=== PATIENT | female | born 1980 | race Two or more races ===

== ENCOUNTER 2021-12-06 19:35 | Emergency (ER) | payer BC ==
[~2021-12-06] VITALS: Ht 170.2 cm; Wt 125.9 kg
[2021-12-06 20:09] VITALS: BP 176/117
[2021-12-06] MEDS ORDERED: LIDOcaine 1% w/EPI 1:100,000 30ml vial (MDV) IJ ONE (21:45)
[2021-12-06] MEDS ORDERED: TETanus/Pertussis (Acell)/Diphther VAC/PF (Tdap-Adult) 0.5ml syringe IMVAC ONE (21:45)
[2021-12-07] MEDS ORDERED: DOXYCYCLINE 100MG CAPSULE PO STA (00:49)
[2021-12-07] MEDS ORDERED: HYDROcodone/acetaminophen 5mg/325mg tablet PO ONE (00:50)
[2021-12-07] MEDS ORDERED: DOXY-1 PO (00:51)
[2021-12-07] MEDS ORDERED: HYDR-3965 PO (00:51)
--- NOTE | 2021-12-07 01:02 | NUR ---
PO MED X2 GIVEN DRESSING APPLIED TO NAIL REMOVAL SITE
== END 2021-12-07 01:03 | disposition home or self-care (01) ==
LOC: ER 19:36
DX: S91.102A Unspecified open wound of left great toe without damage to nail, initial encounter (principal); E11.9 Type 2 diabetes mellitus without complications; Z88.2 Allergy status to sulfonamides; X58.XXXA Exposure to other specified factors, initial encounter; Y93.9 Activity, unspecified; Y92.89 Other specified places as the place of occurrence of the external cause; Y99.8 Other external cause status
CPT/HCPCS: 11730; 90471; 90715; 99284; A6222; A6449

== ENCOUNTER 2024-02-16 10:45 | Inpatient (IN) | payer BC ==
[~2024-02-16] VITALS: Ht 170.2 cm; Wt 129.0 kg
[2024-02-16] VITALS (15 sets, daily range): BP systolic 94–135; BP diastolic 58–95; PULSE 107–117; RESP 14–20; TEMP 97.6–98.6; O2SAT 95–99
[~2024-02-16 10:45] MED LIST: aspirin 81mg tab.chew ONE
[2024-02-16] MEDS ORDERED: verapamil 2.5 mg/ml inj IV ONE ×2 (10:59→12:00)
[2024-02-16] MEDS ORDERED: LIDOcaine 1% (10mg/ml) 2ml vial ONE (10:59)
[2024-02-16] MEDS ORDERED: iohexol 350MG/ML 100ml bottle IV ONE ×3 (11:00→12:07)
[2024-02-16] MEDS ORDERED: nitroGLYCERIN 500mcg/5mL D5W 5 ML IV ONE ×2 (11:00→12:00)
[2024-02-16] MEDS ORDERED: midazolam 1 mg/ML 2ml injection ONE ×2 (11:00→11:44)
[2024-02-16] MEDS ORDERED: fentaNYL/PF 50MCG/1 ML 2ML syringe ONE (11:00)
[2024-02-16] MEDS ORDERED: heparin 1,000unit/ml 10ml vial 10 ML ONE (11:00)
[2024-02-16 11:09] LABS: BASOPHILS # (AUTO) 0.1 X10'3 (0-0.2); EOSINOPHILS # (AUTO) 0.1 X10'3 (0-0.9); EOSINOPHILS % (AUTO) 0.7 % (0-6); HEMOGLOBIN 12.2 g/dl (12.0-16.0); LYMPHOCYTES # (AUTO) 1.1 X10'3 (1.1-4.8); LYMPHOCYTES % (AUTO) 7.5 % (21-51); MEAN CORPUSCULAR HEMOGLOBIN 22.9 PG (27.0-31.0); MEAN CORPUSCULAR HGB CONC 31.3 g/dL (33.0-36.5); MEAN PLATELET VOLUME 8.4 FL (7.4-10.4); MONOCYTES # (AUTO) 0.9 X10'3 (0-0.9); MONOCYTES % (AUTO) 6.4 % (2-12); NEUTROPHILS # (AUTO) 12.5 X10'3 (1.8-7.7); NEUTROPHILS % (AUTO) 84.4 % (42-75); PLATELET COUNT 334 X10'3 (140-440); RED BLOOD COUNT 5.34 X10'6 (4.20-5.60); RED CELL DISTRIBUTION WIDTH 17.9 % (11.5-14.5); WHITE BLOOD COUNT 14.9 X10'3 (4.5-11.0)
[2024-02-16] MEDS: metoprolol tartrate 1mg/ml inj IV ONE (11:13)
[2024-02-16] MEDS: heparin 10,000 units/1 ML INJ IV ONE (11:13)
[2024-02-16] MEDS: normal saline 1000ml 1,000 ML IV ONE (11:13)
[2024-02-16 11:28] LABS: ALANINE AMINOTRANSFERASE 80 U/L (12-78); ALBUMIN 3.1 G/DL (3.4-5.0); ALBUMIN/GLOBULIN RATIO 0.7 (1.1-1.5); ALKALINE PHOSPHATASE 112 IU/L (46-116); ANION GAP 9 (8-16); ASPARTATE AMINO TRANSFERASE 265 U/L (10-37); BILIRUBIN,TOTAL 0.8 MG/DL (0.1-1.0); BLOOD UREA NITROGEN 9 MG/DL (7-18); BUN/CREATININE RATIO 13.4 (10.0-20.0); CALCIUM 8.4 MG/DL (8.5-10.1); CHLORIDE 102 MMOL/L (99-107); CREATININE 0.67 MG/DL (0.40-0.90); GLUCOSE 284 MG/DL (70-104); POTASSIUM 3.4 MMOL/L (3.5-5.1); SODIUM 137 MMOL/L (135-145); TOTAL CARBON DIOXIDE 26.3 MMOL/L (24-32); TOTAL PROTEIN 7.5 G/DL (6.4-8.2); eGFR > 90 ML/MIN
[2024-02-16 11:38] LABS: PRO BRAIN NATRIURETIC PEPTIDE 1748 PG/ML (0-125)
[2024-02-16] MEDS ORDERED: LIDOcaine 1% 30ml preserv. free vial ONE (11:38)
[2024-02-16] MEDS ORDERED: ticagrelor 90mg tablet ONE (12:10)
[2024-02-16] MEDS ORDERED: clopidogrel 300mg tablet ONE (12:11)
[2024-02-16] MEDS ORDERED: aspirin 81mg tab.chew ONE ×4 (12:13→12:14)
[2024-02-16] MEDS ORDERED: ondansetron/PF 4mg/2ml inj IV PRN ×2 (13:05→13:55)
[2024-02-16] MEDS ORDERED: proCHLORperazine 10 MG/2 ml inj IV PRN (13:05)
[2024-02-16] MEDS ORDERED: OXAZEpam 15mg capsule PO PRN (13:05)
[2024-02-16] MEDS ORDERED: HYDROcodone/acetaminophen 5mg/325mg tablet PO PRN (13:05)
[2024-02-16] MEDS ORDERED: nitroGLYCERIN 0.4mg SUBLingual tab SL PRN (13:05)
[2024-02-16] MEDS ORDERED: HYDROcodone/acetaminophen 10/325mg tab PO PRN (13:05)
[2024-02-16] MEDS ORDERED: magnesium sulf-water 2g/50mL 50 ML IV PRN (13:55)
[2024-02-16] MEDS ORDERED: magnesium Cl slow-release 64mg tablet PO PRN (13:55)
[2024-02-16] MEDS ORDERED: potassium Cl 20 mEq SR tablet PO PRN (13:55)
[2024-02-16] MEDS ORDERED: magnesium hydroxide 30ml (MOM) UD suspension PO PRN (13:55)
[2024-02-16] MEDS ORDERED: potassium Cl 40MEQ/1/2NS 520ml 520 ML IV PRN (13:55)
[2024-02-16] MEDS ORDERED: acetaminophen 325mg tablet PO PRN (13:55)
[2024-02-16] MEDS ORDERED: magnesium sulf-water 4G/100mL 100 ML IV PRN (13:55)
[2024-02-16] MEDS ORDERED: mag hydrox/Alum hydrox/simeth 30ml oral suspension PO PRN (13:55)
[2024-02-16] MEDS ORDERED: INSU100I8 SQ (13:56)
[2024-02-16] MEDS ORDERED: TIRZ15PE SQ (13:56)
[2024-02-16] MEDS ORDERED: INSU100I98 SQ (13:56)
[2024-02-16] MEDS ORDERED: DEXTROSE 15 GM of carb/4 tabs (each vial/BOTTLE has 4 tablets) PO PRN ×2 (14:05)
[2024-02-16] MEDS ORDERED: dextrose 50%-water 50ml dispensing syringe IV PRN ×2 (14:05)
[2024-02-16] MEDS ORDERED: glucagon, human recombinant 1mg kit SUBCUT PRN (14:05)
[2024-02-16] MEDS: aspirin 81mg, enteric-coated 1 TAB TABLET.DR PO ONE (14:26)
[2024-02-16 14:35] LABS: HEMOGLOBIN A1C 9.4 % (4.5-6.2)
[2024-02-16] MEDS: metoprolol succinate 25mg (24-HOUR) SR. Tablet PO SCH (15:16)
[2024-02-16] MEDS: INSULIN LISPRO 100 UNIT/ML INSULN.PEN MULTI-DOSE SQ SCH (15:54)
[2024-02-16] MEDS: potassium Cl 20 mEq SR tablet PO PRN (15:56)
[2024-02-16] MEDS ORDERED: CLOP75TA34 PO (17:13)
[2024-02-16] MEDS ORDERED: ASPI-611 PO (17:13)
[2024-02-16] MEDS: K and/or MAG REPLACEMENT MC SCH (20:00)
[2024-02-16] MEDS: docusate sod 100mg capsule PO SCH (20:53)
[2024-02-16] MEDS: HYDROcodone/acetaminophen 5mg/325mg tablet PO PRN (20:55)
[2024-02-16] MEDS: insulin glargine (Lantus) pen - multi-dose SQ SCH (21:02)
[2024-02-17] VITALS (8 sets, daily range): BP systolic 98–127; BP diastolic 52–76; PULSE 99–112; RESP 13–23; TEMP 96.9–97.8; O2SAT 95–98
[2024-02-17 07:22] LABS: BASOPHILS # (AUTO) 0.1 X10'3 (0-0.2); BASOPHILS % (AUTO) 0.7 % (0-1); EOSINOPHILS # (AUTO) 0.1 X10'3 (0-0.9); EOSINOPHILS % (AUTO) 0.4 % (0-6); HEMATOCRIT 32.3 % (35.0-45.0); HEMOGLOBIN 10.2 g/dl (12.0-16.0); LYMPHOCYTES # (AUTO) 1.5 X10'3 (1.1-4.8); LYMPHOCYTES % (AUTO) 12.9 % (21-51); MEAN CORPUSCULAR HGB CONC 31.7 g/dL (33.0-36.5); MEAN CORPUSCULAR VOLUME 72.7 FL (78-98); MEAN PLATELET VOLUME 8.7 FL (7.4-10.4); MONOCYTES # (AUTO) 1.1 X10'3 (0-0.9); MONOCYTES % (AUTO) 9.1 % (2-12); NEUTROPHILS % (AUTO) 76.9 % (42-75); PLATELET COUNT 261 X10'3 (140-440); RED BLOOD COUNT 4.44 X10'6 (4.20-5.60); RED CELL DISTRIBUTION WIDTH 17.6 % (11.5-14.5); WHITE BLOOD COUNT 11.7 X10'3 (4.5-11.0)
[2024-02-17 07:31] LABS: ALBUMIN 2.4 G/DL (3.4-5.0); ANION GAP 6 (8-16); BLOOD UREA NITROGEN 6 MG/DL (7-18); BUN/CREATININE RATIO 8.7 (10.0-20.0); CALCIUM 8.1 MG/DL (8.5-10.1); CHLORIDE 104 MMOL/L (99-107); CHOL/HDL RATIO 2.8 (0.00-4.99); CHOLESTEROL 150 MG/DL (0-200); CREATININE 0.69 MG/DL (0.40-0.90); GLUCOSE 200 MG/DL (70-104); HDL CHOLESTEROL 53 MG/DL (35-60); LDL CHOLESTEROL 81 MG/DL (50-100); POTASSIUM 3.5 MMOL/L (3.5-5.1); SODIUM 137 MMOL/L (135-145); TRIGLYCERIDES 83 MG/DL (20-135); eCRCL 102 ML/MIN; eGFR > 90 ML/MIN
[2024-02-17] MEDS: aspirin 81mg tab.chew PO SCH (08:16)
[2024-02-17] MEDS: clopidogrel 75mg tablet PO SCH (08:17)
[2024-02-17] MEDS: lisinopril 2.5mg tablet PO SCH (20:12)
[2024-02-18 02:00] VITALS: BP 104/72; PULSE 102; RESP 20; TEMP 97.2; O2SAT 97
[2024-02-18 06:00] VITALS: BP 93/54; PULSE 112; RESP 24; TEMP 98.9; O2SAT 97
[2024-02-18 06:59] LABS: BASOPHILS # (AUTO) 0.1 X10'3 (0-0.2)
[2024-02-18 07:01] LABS: BASOPHILS % (AUTO) 0.8 % (0-1); EOSINOPHILS # (AUTO) 0.2 X10'3 (0-0.9); EOSINOPHILS % (AUTO) 1.5 % (0-6); HEMATOCRIT 33.1 % (35.0-45.0); HEMOGLOBIN 10.8 g/dl (12.0-16.0); LYMPHOCYTES % (AUTO) 15.8 % (21-51); MEAN CORPUSCULAR HEMOGLOBIN 23.7 PG (27.0-31.0); MEAN CORPUSCULAR HGB CONC 32.7 g/dL (33.0-36.5); MEAN CORPUSCULAR VOLUME 72.3 FL (78-98); MEAN PLATELET VOLUME 8.6 FL (7.4-10.4); MONOCYTES # (AUTO) 1.2 X10'3 (0-0.9); MONOCYTES % (AUTO) 9.4 % (2-12); NEUTROPHILS # (AUTO) 9.2 X10'3 (1.8-7.7); NEUTROPHILS % (AUTO) 72.5 % (42-75); PLATELET COUNT 309 X10'3 (140-440); RED BLOOD COUNT 4.58 X10'6 (4.20-5.60); RED CELL DISTRIBUTION WIDTH 17.5 % (11.5-14.5); WHITE BLOOD COUNT 12.8 X10'3 (4.5-11.0)
[2024-02-18 07:10] LABS: ALBUMIN 2.2 G/DL (3.4-5.0); ANION GAP 9 (8-16); BLOOD UREA NITROGEN 6 MG/DL (7-18); BUN/CREATININE RATIO 9.5 (10.0-20.0); CALCIUM 8.5 MG/DL (8.5-10.1); CHLORIDE 103 MMOL/L (99-107); CREATININE 0.63 MG/DL (0.40-0.90); GLUCOSE 163 MG/DL (70-104); MAGNESIUM 2.1 MG/DL (1.5-2.4); POTASSIUM 3.9 MMOL/L (3.5-5.1); SODIUM 136 MMOL/L (135-145); TOTAL CARBON DIOXIDE 24.5 MMOL/L (24-32); eCRCL 112 ML/MIN; eGFR > 90 ML/MIN
[2024-02-18 08:00] VITALS: RESP 24; O2SAT 97
[2024-02-18 11:00] VITALS: BP 95/54; PULSE 93; RESP 17; TEMP 98; O2SAT 97
[2024-02-18 15:00] VITALS: BP 122/72; PULSE 98; RESP 19; TEMP 97.5; O2SAT 99
[2024-02-18] MEDS ORDERED: METO-395 PO (15:02)
[2024-02-18] MEDS ORDERED: LISI2.5T14 PO (15:02)
[2024-02-18] MEDS ORDERED: ATOR40TA PO (15:10)
[2024-02-18] MEDS ORDERED: IBUP-1985 PO (15:13)
== END 2024-02-18 17:40 | disposition home or self-care (01) | DRG 322 ==
LOC: ER 10:45 → UNDOADMIN 14:01 → PAS IN 14:01 → PCU 3S 17:36 → PAS IN 17:36
PROVIDERS: ADMIT Internal Medicine Interventional Cardiology; ATTEND Internal Medicine Interventional Cardiology
PROC: 027034Z Dilation of Coronary Artery, One Artery with Drug-eluting Intraluminal Device, Percutaneous Approach (ICD-10-PCS; principal; 2024-02-16)
PROC: 4A023N7 Measurement of Cardiac Sampling and Pressure, Left Heart, Percutaneous Approach (ICD-10-PCS; 2024-02-16)
PROC: B2111ZZ Fluoroscopy of Multiple Coronary Arteries using Low Osmolar Contrast (ICD-10-PCS; 2024-02-16)
PROC: B2151ZZ Fluoroscopy of Left Heart using Low Osmolar Contrast (ICD-10-PCS; 2024-02-16)
DX: I21.09 ST elevation (STEMI) myocardial infarction involving other coronary artery of anterior wall (principal); I50.20 Unspecified systolic (congestive) heart failure; Z68.41 Body mass index [BMI] 40.0-44.9, adult; E87.6 Hypokalemia; E66.9 Obesity, unspecified; E11.9 Type 2 diabetes mellitus without complications; Z86.73 Personal history of transient ischemic attack (TIA), and cerebral infarction without residual deficits; Z79.82 Long term (current) use of aspirin; Z79.01 Long term (current) use of anticoagulants; Z79.899 Other long term (current) drug therapy; Z88.2 Allergy status to sulfonamides; Z83.3 Family history of diabetes mellitus; Z82.49 Family history of ischemic heart disease and other diseases of the circulatory system
CPT/HCPCS: 93306; 93458; 96374; 99285; C9606; 36415; 71045; 80048; 80053; 80061; 82948; 83036; 83735; 83880; 84484; 85025; 93005; 99152; 99153; A6258; A6402; C1725; C1751; C1760; C1874; C1894; G0378; J1644; J1815; J2003; J2250; J3010; J3490; J7030; Q9967

== ENCOUNTER 2024-04-08 15:02 | Emergency (ER) | payer BC ==
[~2024-04-08] VITALS: Ht 170.2 cm; Wt 122.4 kg
[~2024-04-08 15:02] MED LIST changes: +CLOP75TA34 PO; +IBUP-1985 PO; +INSU100I8 SQ; +INSU100I98 SQ; +LISI2.5T14 PO; +METO-395 PO; +TIRZ15PE SQ; -aspirin 81mg tab.chew ONE
[2024-04-08 16:17] LABS: BILIRUBIN,URINE NEGATIVE (Neg); CLARITY,URINE CLOUDY (Clear); COLOR,URINE RED (Yellow); GLUCOSE, URINE NEGATIVE (Neg); KETONES,URINE NEGATIVE (Neg); LEUKOCYTE ESTERASE ,URINE TRACE (Neg); NITRITES, URINE POSITIVE (Neg); OCCULT BLOOD,URINE LARGE (Neg); PH,URINE 6.5 (4.8-8.0); PROTEIN,URINE 100 mg/dl (Neg); UROBILINOGEN,URINE 0.2 E.U/dL (0.2-1.0)
[2024-04-08 16:22] LABS: URINE HCG NEGATIVE (NEG)
[2024-04-08 16:30] LABS: UA COLLECTION TYPE CLN CATCH MIDSTREAM
[2024-04-08 16:31] LABS: BACTERIA,URINE NONE SEEN /HPF (Neg); MUCUS STRANDS NONE SEEN /LPF (Neg); RBC,URINE TNTC /HPF (0-2); SQUAMOUS EPITHELIAL CELL,UR NONE SEEN /LPF (FEW)
[2024-04-08 16:53] LABS: BASOPHILS # (AUTO) 0.1 X10'3 (0-0.2); BASOPHILS % (AUTO) 1.1 % (0-1); EOSINOPHILS # (AUTO) 0.2 X10'3 (0-0.9); EOSINOPHILS % (AUTO) 2.1 % (0-6); HEMATOCRIT 37.9 % (35.0-45.0); HEMOGLOBIN 12.2 g/dl (12.0-16.0); LYMPHOCYTES # (AUTO) 1.6 X10'3 (1.1-4.8); LYMPHOCYTES % (AUTO) 15.9 % (21-51); MEAN CORPUSCULAR HEMOGLOBIN 23.2 PG (27.0-31.0); MEAN CORPUSCULAR HGB CONC 32.3 g/dL (33.0-36.5); MEAN CORPUSCULAR VOLUME 71.8 FL (78-98); MEAN PLATELET VOLUME 9.1 FL (7.4-10.4); MONOCYTES # (AUTO) 0.5 X10'3 (0-0.9); MONOCYTES % (AUTO) 4.9 % (2-12); NEUTROPHILS # (AUTO) 7.6 X10'3 (1.8-7.7); PLATELET COUNT 338 X10'3 (140-440); RED BLOOD COUNT 5.28 X10'6 (4.20-5.60); RED CELL DISTRIBUTION WIDTH 17.2 % (11.5-14.5)
[2024-04-08] MEDS ORDERED: MAGN296S68 PO (16:57)
[2024-04-08] MEDS ORDERED: CEPH-585 PO (16:57)
[2024-04-08] MEDS: cephalexin 250mg capsule PO ONE (17:16)
[2024-04-08 17:17] LABS: ALANINE AMINOTRANSFERASE 27 U/L (12-78); ALBUMIN 3.5 G/DL (3.4-5.0); ALBUMIN/GLOBULIN RATIO 0.8 (1.1-1.5); ALKALINE PHOSPHATASE 95 IU/L (46-116); ANION GAP 9 (8-16); ASPARTATE AMINO TRANSFERASE 14 U/L (10-37); BILIRUBIN,TOTAL 0.7 MG/DL (0.1-1.0); BLOOD UREA NITROGEN 11 MG/DL (7-18); BUN/CREATININE RATIO 18.6 (10.0-20.0); CALCIUM 8.6 MG/DL (8.5-10.1); CHLORIDE 105 MMOL/L (99-107); CREATININE 0.59 MG/DL (0.40-0.90); GLUCOSE 118 MG/DL (70-104); LIPASE 51 U/L (16-77); POTASSIUM 4.1 MMOL/L (3.5-5.1); SODIUM 140 MMOL/L (135-145); TOTAL CARBON DIOXIDE 25.9 MMOL/L (24-32); TOTAL PROTEIN 8.1 G/DL (6.4-8.2); eCRCL 120 ML/MIN; eGFR > 90 ML/MIN
[2024-04-08] MEDS: bisacodyl 10mg suppository rectal RC STA (18:00)
[2024-04-08] MEDS: magnesium citrate 296ml oral solution PO ONE (18:00)
[2024-04-08 18:02] VITALS: BP 152/96; PULSE 89; RESP 16; TEMP 98; O2SAT 98
== END 2024-04-08 18:07 | disposition home or self-care (01) ==
LOC: ER 15:03
DX: K59.00 Constipation, unspecified (principal); N39.0 Urinary tract infection, site not specified; E11.9 Type 2 diabetes mellitus without complications; Z86.73 Personal history of transient ischemic attack (TIA), and cerebral infarction without residual deficits; Z88.2 Allergy status to sulfonamides; Z79.899 Other long term (current) drug therapy; Z72.89 Other problems related to lifestyle
CPT/HCPCS: 36415; 80053; 81001; 81025; 83690; 85025; 87088; 99283

== ENCOUNTER 2024-06-20 09:05 | Emergency (ER) | payer BC ==
[~2024-06-20] VITALS: Ht 170.2 cm; Wt 122.7 kg
[~2024-06-20 09:05] MED LIST changes: +CEPH-585 PO; +MAGN296S68 PO
[2024-06-20 09:17] VITALS: TEMP 97.9
--- NOTE | 2024-06-20 09:42 | RADIOLOGY REPORT ---
EXAM: DI CHEST,SINGLE VIEW Indication: CP Technique: Single frontal view of the chest was obtained Comparison: DI CHEST,SINGLE VIEW on DOS: 02/16/24 FINDINGS: Lines and Tubes: None Lungs: No focal consolidation. Pleura: No effusion. No pneumothorax. Cardiomediastinal contours: Unremarkable Bones: No acute osseous abnormality. IMPRESSION: No acute cardiopulmonary disease.
[2024-06-20 09:52] LABS: BASOPHILS # (AUTO) 0.1 X10'3 (0-0.2); BASOPHILS % (AUTO) 0.8 % (0-1); EOSINOPHILS # (AUTO) 0.2 X10'3 (0-0.9); EOSINOPHILS % (AUTO) 0.9 % (0-6); HEMATOCRIT 36.8 % (35.0-45.0); HEMOGLOBIN 11.4 g/dl (12.0-16.0); LYMPHOCYTES # (AUTO) 4.7 X10'3 (1.1-4.8); LYMPHOCYTES % (AUTO) 27.7 % (21-51); MEAN CORPUSCULAR HEMOGLOBIN 21.6 PG (27.0-31.0); MEAN CORPUSCULAR HGB CONC 30.9 g/dL (33.0-36.5); MEAN CORPUSCULAR VOLUME 69.9 FL (78-98); MEAN PLATELET VOLUME 8.7 FL (7.4-10.4); MONOCYTES % (AUTO) 5.9 % (2-12); NEUTROPHILS # (AUTO) 10.9 X10'3 (1.8-7.7); NEUTROPHILS % (AUTO) 64.7 % (42-75); PLATELET COUNT 453 X10'3 (140-440); RED BLOOD COUNT 5.27 X10'6 (4.20-5.60); RED CELL DISTRIBUTION WIDTH 16.1 % (11.5-14.5); WHITE BLOOD COUNT 16.9 X10'3 (4.5-11.0)
[2024-06-20 10:11] LABS: ALANINE AMINOTRANSFERASE 19 U/L (12-78); ALBUMIN/GLOBULIN RATIO 0.8 (1.1-1.5); ALKALINE PHOSPHATASE 88 IU/L (46-116); ANION GAP 7 (8-16); ASPARTATE AMINO TRANSFERASE 12 U/L (10-37); BILIRUBIN,TOTAL 0.8 MG/DL (0.1-1.0); BLOOD UREA NITROGEN 14 MG/DL (7-18); BUN/CREATININE RATIO 17.9 (10.0-20.0); CALCIUM 8.2 MG/DL (8.5-10.1); CHLORIDE 103 MMOL/L (99-107); CREATININE 0.78 MG/DL (0.40-0.90); GLUCOSE 165 MG/DL (70-104); SODIUM 135 MMOL/L (135-145); TOTAL CARBON DIOXIDE 25.4 MMOL/L (24-32); TOTAL PROTEIN 6.8 G/DL (6.4-8.2); eCRCL 90 ML/MIN; eGFR 81 ML/MIN
[2024-06-20] MEDS: normal saline 1000ml 1,000 ML IV ONE (10:18)
[2024-06-20 10:22] LABS: PRO BRAIN NATRIURETIC PEPTIDE 387 PG/ML (0-125)
--- NOTE | 2024-06-20 11:07 | Physician Documentation ---
History of Present Illness ~ Chief Complaint: Syncope Stated Complaint: SYNCOPE Time Seen by MD: 10:04 OK to notify your PCP?: Yes Primary Medical Doctor: Jarrell Becerril Mode of Arrival: EMS HPI 43-year-old female presenting with a syncopal episode. Patient recently had a LA and January of last year and had a subsequent stent placement. Today she was at cardiac rehab and was doing her workout. When she finished a started taking her blood pressure and she started feeling very lightheaded and suddenly fainted. She was brought by EMS to the hospital. Patient states that she curr ently feels fatigued and tired but is not having any symptoms such as chest pain, headache, dizziness or any other associated symptoms. Medication Reconciliation Allergies: Coded Allergies: Sulfa (Sulfonamide Antibiotics) (Verified Allergy, Unknown, 02/16/24) Scheduled Cephalexin*Monohydrate* (Keflex*), 1 CAP PO QID Clopidogrel Bisulfate (Clopidogrel), 1 TAB PO DAILY Ibuprofen (Ibuprofen), 1 TAB PO TID Insulin Glargine-Yfgn (Semglee (Yfgn) Pen), 18 UNITS SQ DAILY, (Reported) Lisinopril (Lisinopril), 2.5 MG PO HS Magnesium Citrate (MAGNESIUM CITRATE oral solution), 296 ML PO ONCE Metoprolol Succinate (Metoprolol Succinate), 25 MG PO DAILY Tirzepatide (Mounjaro), 15 MG SQ Q7D, (Reported) Scheduled PRN Insulin Lispro (Humalog), 1 UNITS SQ TIDWM PRN for Glucose levels determined, (Reported) Past Medical History Past Medical History: CVA/TIA/Stroke, Diabetes Past Surgical History: no surgical history Last Menstrual Period: Jun 03, 2024 Patient History: FH: diabetes mellitus FATHER, Age: 65 FH: heart attack FATHER, Age: 65 Alcohol Use: Occasionally Drug Use: none Lives In: Home Occupation: employed Review of Systems All Other Systems at this time: Reviewed and Negative Physical Exam Vital Signs: Temperature: 97.9, Source: Oral, Heart Rate: 65, Respiratory Rate: 13, BP: 111/67, Pulse Oximetry: 100, Weight: 122.700 Oxygen Flow Rate: 0 Physical Exam I have reviewed the triage vitals. CONST: Well developed and well nourished. In no acute distress HENT: Head Atraumatic EYES: Pupils are equal, round and reactive to light. Normal conjunctiva NECK: Normal range of motion. Supple. CARDIO: Normal rate and regular rhythm. No murmurs, rubs, or gallops. S1, S2. PULM/CHEST: No respiratory distress. Lungs clear to auscultation. No wheeze ABD: Soft and nontender. Nondistended. Bowel sounds normal. No guarding. : Exam deferred MSK: No edema. No deformity. NEURO: Alert and oriented to person, place and time. Moving all extremities SKIN: Warm and dry. PSYCH: Normal mood and affect. Good eye contact. Progress Results/Orders Results/Orders Orders - TORREY ROA MD Chest,Single View (06/20/24 09:06) Monitor (06/20/24 09:06) Saline Lock (06/20/24 09:06) Oxygen (06/20/24 09:06) Completed Orders - TORREY ROA MD Chest,Single View (06/20/24 09:06) Cbc/Diff (06/20/24 09:06) PBNP (06/20/24 09:06) Electrocardiogram (06/20/24 09:06) CMP (06/20/24 09:06) Hs Troponin I W Calculations (06/20/24 09:06) Hs Troponin I W Calculations (06/20/24 11:06) Normal Saline 1000ml (Sodium Chloride 10 (06/20/24 10:05) Hcg, Ur Ql (06/20/24 11:05) Ua With Microscopic (06/20/24 09:17) Medications Received in ER Medications (Trade) Dose Ordered Sig/Brittany Route PRN Reason Start Time Stop Time Status Last Admin Dose Admin Sodium Chloride 1,000 ml @ 1,000 mls/hr ONCE ONCE IV 06/20/24 10:05 06/20/24 11:04 DC 06/20/24 10:18 1,000 MLS/HR Vital Signs 06/20/24 06/20/24 06/20/24 06/20/24 09:08 09:17 09:56 09:59 Temp 97.9 Pulse 73 76 70 Resp 18 15 15 15 B/P (MAP) 117/84 96/60 (72) 85/52 (63) Pulse Ox 100 97 100 06/20/24 06/20/24 06/20/24 06/20/24 10:21 10:44 10:59 12:12 Pulse 61 60 65 59 Resp 14 13 13 13 B/P (MAP) 84/51 (62) 101/63 (76) 111/67 (82) 97/50 (66) Pulse Ox 100 100 100 100 O2 Flow Rate 0 06/20/24 12:44 Pulse 79 Resp 16 B/P (MAP) 120/87 (98) Pulse Ox 96 Laboratory Tests Test 06/20/24 09:17 06/20/24 09:30 06/20/24 11:31 Urine Specimen Description Cln catch midstream Urine Color Yellow Urine Clarity Slightly cloudy Urine pH 6.0 Urine Specific [place] 1.015 Urine Protein Negative Urine Glucose (UA) >=1000 H Urine Ketones Negative Urine Occult Blood Negative Urine Nitrite Negative Urine Bilirubin Negative Urine Urobilinogen 0.2 Urine Leukocyte Esterase Negative Urine RBC 0-2 Urine WBC 0-4 Urine Squamous Epithelial Cells Many Urine Bacteria 1+ Urine Mucus Few Volume Urine Centrifuged 10 ml Urine HCG, Qualitative Negative Urine Comment White Blood Count 16.9 H Red Blood Count 5.27 Hemoglobin 11.4 L Hematocrit 36.8 Mean Corpuscular Volume 69.9 L Mean Corpuscular Hemoglobin 21.6 L Mean Corpuscular Hemoglobin Concent 30.9 L Red Cell Distribution Width 16.1 H Platelet Count 453 H Mean Platelet Volume 8.7 Neutrophils (%) (Auto) 64.7 Lymphocytes (%) (Auto) 27.7 Monocytes (%) (Auto) 5.9 Eosinophils (%) (Auto) 0.9 Basophils (%) (Auto) 0.8 Neutrophils # (Auto) 10.9 H Lymphocytes # (Auto) 4.7 Monocytes # (Auto) 1.0 H Eosinophils # (Auto) 0.2 Basophils # (Auto) 0.1 CBC Comment Sodium Level 135 Potassium Level 4.0 Chloride Level 103 Carbon Dioxide Level 25.4 Anion Gap 7 L Blood Urea Nitrogen 14 Creatinine 0.78 Estimated GFR/1.73 m2 81 BUN/Creatinine Ratio 17.9 Glucose Level 165 H Calcium Level 8.2 L Total Bilirubin 0.8 Aspartate Amino Transf (AST/SGOT) 12 Alanine Aminotransferase (ALT/SGPT) 19 Alkaline Phosphatase 88 Troponin I High Sensitivity 6 7 Pro-B-Type Natriuretic Peptide 387 H Total Protein 6.8 Albumin 3.0 L Globulin 3.8 Albumin/Globulin Ratio 0.8 L Chemistry Comments Troponin I High Sens Percent Delta 16 Troponin I Hi Sens Absolute Change 1 EKG/XRAY/CT/US/VASC/MRI EKG : Additional Comment Normal sinus rhythm with a rate of 71 beats per minute, normal axis, no ischemia, EKG as interpreted by myself Chest X-Ray : Additional Comments EXAM: DI CHEST,SINGLE VIEW Indication: CP Technique: Single frontal view of the chest was obtained Comparison: DI CHEST,SINGLE VIEW on DOS: 02/16/24 FINDINGS: Lines and Tubes: None Lungs: No focal consolidation. Pleura: No effusion. No pneumothorax. Cardiomediastinal contours: Unremarkable Bones: No acute osseous abnormality. IMPRESSION: No acute cardiopulmonary disease. Medical Decision Making Additional Information This is a 43-year-old female presenting with acute onset syncope likely secondary to some dehydration. He was she was slightly hypotensive initially on presentation. Her lab workup was unremarkable. Patient was given 1 L of IV normal saline with good resolution of symptoms. On reassessment she was doing well and her vitals were normal. She was able to stand and walk around without any difficulty and had no recurring symptoms of dizziness. I advised the patient to ensure that she is drinking plenty of fluids and to take her medications as prescribed. 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 Return to the ED with any acutely worsening symptoms. Departure Disposition: HOME / SELF CARE / HOMELESS Impression: Primary Impression: Syncope Additional Impression: Dehydration Condition: Improved Discharge Instructions: Dehydration, Elderly, [id number], Syncope, Adult Referrals: NO PRIMARY CARE PROVIDER (PCP) Signature Scribe Signature: 1 Attestation: 1 TORREY ROA MD Jun 20, 2024 11:07
[2024-06-20 11:24] LABS: URINE HCG NEGATIVE (NEG)
[2024-06-20 11:36] LABS: BILIRUBIN,URINE NEGATIVE (Neg); CLARITY,URINE SLIGHTLY CLOUDY (Clear); COLOR,URINE YELLOW (Yellow); GLUCOSE, URINE >=1000 mg/dl (Neg); KETONES,URINE NEGATIVE (Neg); LEUKOCYTE ESTERASE ,URINE NEGATIVE (Neg); NITRITES, URINE NEGATIVE (Neg); OCCULT BLOOD,URINE NEGATIVE (Neg); PROTEIN,URINE NEGATIVE (Neg); UROBILINOGEN,URINE 0.2 E.U/dL (0.2-1.0)
[2024-06-20 11:54] LABS: UA COLLECTION TYPE CLN CATCH MIDSTREAM
[2024-06-20 11:55] LABS: SQUAMOUS EPITHELIAL CELL,UR MANY /LPF (FEW)
[2024-06-20 11:56] LABS: MUCUS STRANDS FEW /LPF (Neg)
[2024-06-20 11:57] LABS: RBC,URINE 0-2 /HPF (0-2); WBC,URINE 0-4 /HPF (0-4)
[2024-06-20 11:58] LABS: BACTERIA,URINE 1+ /HPF (Neg)
--- NOTE | 2024-06-20 12:14 | ELECTROCARDIOGRAPH REPORT ---
[facility] Test Date: 2024-06-20 Test Time: 09:22:26 Pat Name: ANTONIO LEDEZMA Department: EMERGENCY ROOM Room: Gender: F [employer]ons: : 1980 Requested By: TORREY ROA Order Number: [id number] Reading MD: Dr. Alex Wray Measurements Intervals [place] Rate: 72 P: 46 WV: 128 QRS: -3 QRSD: 86 T: 5 QT: 391 QTc: 428 Interpretive Statements Sinus rhythm Probable anterolateral infarct, old Electronically Signed On 06-20-2024 19:02:[address] Alex Wray Please click the below link to view image of tracing.
[2024-06-20 13:41] VITALS: BP 97/62; PULSE 65; RESP 16; O2SAT 99
== END 2024-06-20 13:44 | disposition home or self-care (01) ==
LOC: ER 09:06
DX: R55 Syncope and collapse (principal); E11.9 Type 2 diabetes mellitus without complications; E86.0 Dehydration; Z86.73 Personal history of transient ischemic attack (TIA), and cerebral infarction without residual deficits; Z88.2 Allergy status to sulfonamides; Z88.8 Allergy status to other drugs, medicaments and biological substances
CPT/HCPCS: 36415; 71045; 80053; 81001; 81025; 83880; 84484; 85025; 93005; 96360; 99285; J7030

== ENCOUNTER 2024-08-10 14:15 | Emergency (ER) | payer BC ==
[~2024-08-10] VITALS: Ht 170.2 cm; Wt 121.4 kg
[2024-08-10 14:22] VITALS: TEMP 98
--- NOTE | 2024-08-10 14:23 | ELECTROCARDIOGRAPH REPORT ---
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
--- NOTE | 2024-08-10 14:33 | Physician Documentation ---
History of Present Illness ~ Chief Complaint: Shortness of Breath Stated Complaint: HIGH BLOOD PRESSURE HIGH HEART RATE Time Seen by MD: 17:09 Primary Medical Doctor: Jarrell CONDE This is a 43-year-old female who presents with shortness of breath, anxiety, left lower chest pain, and intermittent nosebleeds onset after a confrontation with her supervisor drapery hanging earlier this morning. Patient reports that she was recently prescribed medications for anxiety though is not TMs medication. Patient reports nosebleeds stop quickly after starting. To complicate matters patient did have a previous myocardial infarction and has consequently developed congestive heart failure. Currently denies any chest pain or shortness of breath and states she has begun to feel better. States this is likely related to her argument with her supervisor drapery hanging Day of Onset: Aug 10, 2024 Medication Reconciliation Allergies: Coded Allergies: Sulfa (Sulfonamide Antibiotics) (Verified Allergy, Unknown, 02/16/24) Scheduled Cephalexin*Monohydrate* (Keflex*), 1 CAP PO QID Clopidogrel Bisulfate (Clopidogrel), 1 TAB PO DAILY Ibuprofen (Ibuprofen), 1 TAB PO TID Insulin Glargine-Yfgn (Semglee (Yfgn) Pen), 18 UNITS SQ DAILY, (Reported) Lisinopril (Lisinopril), 2.5 MG PO HS Magnesium Citrate (MAGNESIUM CITRATE oral solution), 296 ML PO ONCE Metoprolol Succinate (Metoprolol Succinate), 25 MG PO DAILY Tirzepatide (Mounjaro), 15 MG SQ Q7D, (Reported) Scheduled PRN Insulin Lispro (Humalog), 1 UNITS SQ TIDWM PRN for Glucose levels determined, (Reported) Past Medical History Past Medical History: CVA/TIA/Stroke, Diabetes Past Surgical History: no surgical history Patient History: FH: diabetes mellitus FATHER, Age: 65 FH: heart attack FATHER, Age: 65 Alcohol Use: Occasionally Drug Use: none Lives In: Home Occupation: employed Physical Exam Vital Signs: Temperature: 98.0, Source: Temporal, Heart Rate: 126, Respiratory Rate: 22, BP: 173/108, Pulse Oximetry: 98, Weight: 121.360 Oxygen Flow Rate: 0 Progress Results/Orders Results/Orders Completed Orders - CYNTHIA BLANKENSHIP NP Ondansetron Inj. (Zofran 4mg/2ml Vial) (08/10/24 18:05) Vital Signs 08/10/24 08/10/24 14:22 17:12 Temp 98.0 Pulse 126 105 Resp 22 16 B/P (MAP) 173/108 151/82 (105) Pulse Ox 98 100 O2 Flow Rate 0 0 Laboratory Tests Test 08/10/24 14:29 08/10/24 16:31 08/10/24 17:27 White Blood Count 10.3 Red Blood Count 5.04 Hemoglobin 10.8 L Hematocrit 34.0 L Mean Corpuscular Volume 67.4 L Mean Corpuscular Hemoglobin 21.4 L Mean Corpuscular Hemoglobin Concent 31.7 L Red Cell Distribution Width 16.7 H Platelet Count 387 Mean Platelet Volume 8.2 Neutrophils (%) (Auto) 72.3 Lymphocytes (%) (Auto) 20.0 L Monocytes (%) (Auto) 4.9 Eosinophils (%) (Auto) 1.5 Basophils (%) (Auto) 1.3 H Neutrophils # (Auto) 7.5 Lymphocytes # (Auto) 2.1 Monocytes # (Auto) 0.5 Eosinophils # (Auto) 0.2 Basophils # (Auto) 0.1 CBC Comment Platelet Estimate Normal Large Platelets Few Red Blood Cell Morphology Perf Basophilic Stippling Anisocytosis 1+ Microcytosis 2+ Elliptocytes Few Sodium Level 140 Potassium Level 3.4 L Chloride Level 103 Carbon Dioxide Level 22.8 L Anion Gap 14 Blood Urea Nitrogen 8 Creatinine 0.82 Estimated GFR/1.73 m2 76 BUN/Creatinine Ratio 9.8 L Glucose Level 178 H Calcium Level 8.9 Troponin I High Sensitivity 9 22 24 Pro-B-Type Natriuretic Peptide 276 H Albumin 3.3 L Chemistry Comments Troponin I High Sens Percent Delta 144 9 Troponin I Hi Sens Absolute Change 13 2 Medical Decision Making Findings I was initially concerned about the patient's troponins and her history of myocardial infarction. She went from 9to 22 and then 24. She does not appear to be trending upward grossly. And she remains asymptomatic. Did give her an antiemetic. She does have a recent history of anxiety which he has been evaluated for I discussed my findings with the patient advised her to return to the ED for any worsening symptoms or if she has increased chest pain. Differential Dx:Considerations: Include: anxiety, asthma, bronchitis, cardiogenic shock, CHF, COPD, dysrhythmia, hypertension, accelerated, hypertension, essential, hypertension, malignant, hyperventilation, hyponatremia, myocardial infarction, panic attack, pneumonia, pneumonitis, pneumothorax, PSVT, pulmonary embolism, respiratory distress, respiratory failure, sinusitis, upper resp. infection, other Departure Disposition: HOME / SELF CARE / HOMELESS Impression: Primary Impression: Acute systolic heart failure Condition: Stable Discharge Instructions: Heart Failure, Diagnosis, [id number] Referrals: NO PRIMARY CARE PROVIDER (PCP) Additional Comment Medical Screen Exam History: This is a 43-year-old female who presents with shortness of breath, anxiety, left lower chest pain, and intermittent nosebleeds onset after a confrontation with her supervisor drapery hanging earlier this morning. Patient reports that she was recently prescribed medications for anxiety though is not TMs medication. Patient reports nosebleeds stop quickly after starting. VITALS: Reviewed and as above. GENERAL: Alert, nontoxic appearing, tearful, no apparent distress. HEENT: No bleeding from nares RESPIRATORY: No increased work of breathing, no respiratory distress, speaking in full clear sentences GI: Nondistended MUSCULOSKELETAL: PSYCH: Anxious appearing MSE performed in triage and patient returned to ED lobby by nursing staff The note accurately reflects work and decisions made by me.NAYANA Gutiérrez 08/10/24 14:33 Signature Scribe Signature: f Attestation: Scribed for Cynthia Blankenship [employer]om[employer] Operator by Cynthia Tompkins NP . 08/10/24 17:33 RITA MELLO Aug 10, 2024 14:33 CYNTHIA BLANKENSHIP NP Aug 10, 2024 17:35
[2024-08-10 14:36] LABS: BASOPHILS # (AUTO) 0.1 X10'3 (0-0.2); BASOPHILS % (AUTO) 1.3 % (0-1); EOSINOPHILS # (AUTO) 0.2 X10'3 (0-0.9); EOSINOPHILS % (AUTO) 1.5 % (0-6); HEMOGLOBIN 10.8 g/dl (12.0-16.0); LYMPHOCYTES # (AUTO) 2.1 X10'3 (1.1-4.8); MEAN CORPUSCULAR HEMOGLOBIN 21.4 PG (27.0-31.0); MEAN CORPUSCULAR HGB CONC 31.7 g/dL (33.0-36.5); MEAN CORPUSCULAR VOLUME 67.4 FL (78-98); MEAN PLATELET VOLUME 8.2 FL (7.4-10.4); MONOCYTES # (AUTO) 0.5 X10'3 (0-0.9); MONOCYTES % (AUTO) 4.9 % (2-12); NEUTROPHILS # (AUTO) 7.5 X10'3 (1.8-7.7); NEUTROPHILS % (AUTO) 72.3 % (42-75); PLATELET COUNT 387 X10'3 (140-440); RED BLOOD COUNT 5.04 X10'6 (4.20-5.60); RED CELL DISTRIBUTION WIDTH 16.7 % (11.5-14.5); WHITE BLOOD COUNT 10.3 X10'3 (4.5-11.0)
[2024-08-10 14:47] LABS: LARGE PLATELETS FEW; PLATELET ESTIMATE NORMAL
[2024-08-10 14:48] LABS: ANISOCYTOSIS 1+; ELLIPTOCYTES FEW; MICROCYTOSIS 2+
--- NOTE | 2024-08-10 14:50 | RADIOLOGY REPORT ---
AP portable chest CLINICAL INDICATION: CP FINDINGS: Heart size is normal. No infiltrates or effusions. No bony thoracic abnormalities. IMPRESSION: 1. Normal chest x-ray.
[2024-08-10 14:58] LABS: ALBUMIN 3.3 G/DL (3.4-5.0); ANION GAP 14 (8-16); BLOOD UREA NITROGEN 8 MG/DL (7-18); BUN/CREATININE RATIO 9.8 (10.0-20.0); CALCIUM 8.9 MG/DL (8.5-10.1); CHLORIDE 103 MMOL/L (99-107); CREATININE 0.82 MG/DL (0.40-0.90); GLUCOSE 178 MG/DL (70-104); POTASSIUM 3.4 MMOL/L (3.5-5.1); SODIUM 140 MMOL/L (135-145); TOTAL CARBON DIOXIDE 22.8 MMOL/L (24-32); eCRCL 86 ML/MIN; eGFR 76 ML/MIN
[2024-08-10 15:05] LABS: PRO BRAIN NATRIURETIC PEPTIDE 276 PG/ML (0-125)
[2024-08-10] MEDS ORDERED: ondansetron/PF 4mg/2ml inj IV ONE (18:05)
[2024-08-10] MEDS: ondansetron 4mg rapidly disintigrating tab PO ONE (18:18)
[2024-08-10 18:20] VITALS: BP 138/78; PULSE 85; RESP 16; O2SAT 99
== END 2024-08-10 18:24 | disposition home or self-care (01) ==
LOC: ER 14:16
DX: I50.21 Acute systolic (congestive) heart failure (principal); R07.89 Other chest pain; I25.2 Old myocardial infarction; F41.9 Anxiety disorder, unspecified; E11.9 Type 2 diabetes mellitus without complications; Z88.2 Allergy status to sulfonamides; Z79.4 Long term (current) use of insulin; Z86.73 Personal history of transient ischemic attack (TIA), and cerebral infarction without residual deficits
CPT/HCPCS: 36415; 71045; 80048; 83880; 84484; 85008; 85025; 93005; 99285